=== PATIENT | female | born 2000 | race African-American/Black ===

== ENCOUNTER 2022-11-05 12:11 | Inpatient (IN) ==
[2022-11-05] MEDS ORDERED: Lactated Ringers 1000 ml BAG 1,000 ML IV ONE (12:28)
[2022-11-05] MEDS ORDERED: HYDROmorphone 1 MG/1 ML SYRINGE IV ONE ×4 (12:28→19:37)
[2022-11-05 13:07] LABS: ABS Basophils 0.1 10^3/ul (0-0.2); ABS Eosinophils 0.3 10^3/ul (0-0.6); ABS Lymphocytes 1.6 10^3/ul (1.0-4.8); ABS Monocytes 0.4 10^3/ul (0-0.8); ABS Neutrophils 6.6 10^3/ul (1.5-7.7); ABS Nucleated RBC 0.2 10^3/ul; Corrected Retic Count 4.4 % (0.5-1.5); Eosinophil % 2.9 %; Hematocrit 23 % (35-47); Hematocrit for Retic CNT 23 % (35-47); Immature Retic Fraction 0.69; Lymphocyte % 18.1 %; Mean Corpuscular HGB Conc 35 g/dL (31-36); Mean Corpuscular Hemoglobin 31 pg (27-31); Mean Corpuscular Volume 89 fL (80-97); Mean Platelet Volume 8.6 fL (7.4-10.4); Nucleated Red Blood Cells % 1.8; Platelet Count 320 10^3/uL (150-450); RBC Retic Count 2.58 10^6/uL (3.70-4.87); Red Blood Count 2.58 10^6 /uL (3.70-4.87); Red Cell Distribution Width 22 % (10-15)
[2022-11-05 13:12] LABS: INR 1.26 (0.88-1.18)
[2022-11-05 13:41] LABS: Albumin 4.4 g/dL (3.2-5.2); Albumin/Globulin Ratio 1.6 (1-3); Calcium 9.6 mg/dL (8.6-10.3); Creatinine, Serum 0.66 mg/dL (0.51-0.95); Direct Bilirubin 0.5 mg/dL (0.03-0.18); Globulin 2.8 g/dL (2-4); Indirect Bilirubin 5.9 mg/dL (0.3-1.0); Potassium 4.6 mmol/L (3.5-5.0); Total Bilirubin 6.4 mg/dL (0.2-1.0); Total Protein 7.2 g/dL (6.4-8.9); eGFR CKD-EPI 127.1 (>60)
[2022-11-05] MEDS ORDERED: HYDROmorphone 1 MG/1 ML SYRINGE IV SLOW PU ONE (14:02)
[2022-11-05] MEDS ORDERED: Enoxaparin 40 MG/0.4 ML SYR SUBCUT SCH (16:00)
[2022-11-05] MEDS ORDERED: HYDROmorphone 0.5 MG/0.5 ML SYRINGE IV PRN (16:10)
[2022-11-05] MEDS ORDERED: Acetaminophen IV 1 GM/100ML 1,000 MG/100 ML BAG IV PRN (16:11)
[2022-11-05] MEDS ORDERED: NS 0.9% 1000 ml BAG 1,000 ML IV SCH (16:30)
[2022-11-05] MEDS: oxyCODONE SR 10 mg TAB PO SCH ×2 (16:55→21:39)
[2022-11-05] MEDS ORDERED: oxyCODONE SR 10 mg TAB PO SCH (17:00)
[2022-11-05] MEDS ORDERED: Magnesium Hydroxide LIQ 30 ML UDC PO PRN (17:15)
[2022-11-05] MEDS: Enoxaparin 40 MG/0.4 ML SYR SUBCUT SCH (17:36)
[2022-11-05] MEDS ORDERED: HYDROmorphone 0.5 MG/0.5 ML SYRINGE IV ONE (17:45)
[2022-11-05] MEDS ORDERED: HYDROmorphone 1 MG/1 ML SYRINGE IV PRN (18:01)
[2022-11-05] MEDS ORDERED: HYDROmorphone 1 MG/1 ML SYRINGE IV SCH (20:00)
[2022-11-05] MEDS: HYDROmorphone 1 MG/1 ML SYRINGE IV SCH ×2 (21:36→23:51)
[2022-11-05] MEDS: NS 0.45% 1000 ml BAG 1,000 ML IV SCH (21:44)
[2022-11-06 00:39] LABS: HIV 4th Generation Nonreactive (Nonreactive)
[2022-11-06] MEDS: HYDROmorphone 1 MG/1 ML SYRINGE IV SCH ×4 (01:59→08:25)
[2022-11-06 05:40] LABS: Hematocrit 21 % (35-47); Hematocrit for Retic CNT 21 % (35-47); Mean Corpuscular HGB Conc 34 g/dL (31-36); Mean Corpuscular Hemoglobin 30 pg (27-31); Mean Corpuscular Volume 89 fL (80-97); Mean Platelet Volume 8.6 fL (7.4-10.4); Platelet Count 258 10^3/uL (150-450); RBC Retic Count 2.31 10^6/uL (3.70-4.87); Red Blood Count 2.31 10^6 /uL (3.70-4.87); Red Cell Distribution Width 22 % (10-15); White Blood Count 18.7 10^3/uL (3.5-10.8)
[2022-11-06] MEDS: NS 0.45% 1000 ml BAG 1,000 ML IV SCH (05:51)
[2022-11-06 06:11] LABS: Albumin 4.1 g/dL (3.2-5.2); Albumin/Globulin Ratio 1.5 (1-3); Calcium 8.7 mg/dL (8.6-10.3); Creatinine, Serum 0.58 mg/dL (0.51-0.95); Globulin 2.7 g/dL (2-4); Potassium 4.6 mmol/L (3.5-5.0); Total Bilirubin 5.9 mg/dL (0.2-1.0); Total Protein 6.8 g/dL (6.4-8.9); eGFR CKD-EPI 131.1 (>60)
[2022-11-06 07:02] LABS: Anisocytosis 2+; Polychromasia 2+
[2022-11-06 07:03] LABS: Sickle Cells 2+
[2022-11-06 07:04] LABS: Target Cells 2+
[2022-11-06 07:10] LABS: Microcytosis 1+
[2022-11-06 07:20] LABS: ABS Lymphocytes 2.1 10^3/ul (1.0-4.8); ABS Monocytes 1.8 10^3/ul (0-0.8); ABS Neutrophils 14.8 10^3/ul (1.5-7.7); ABS Nucleated RBC 0.5 10^3/ul; Corrected Retic Count 4.8 % (0.5-1.5); Eosinophil % 0.1 %; Immature Retic Fraction 0.69; Nucleated Red Blood Cells % 2.9
[2022-11-06] MEDS ORDERED: NS 0.9% 1000 ml BAG 1,000 ML IV SCH (07:30)
[2022-11-06] MEDS ORDERED: oxyCODONE SR 10 mg TAB PO SCH (08:00)
[2022-11-06] MEDS ORDERED: Naloxone 0.4 mg VIAL 0.4 mg/ml 1 ml VIAL IV PUSH PRN (08:25)
[2022-11-06] MEDS ORDERED: HYDROmorphone PCA 20 MG/20 ML PCA.SYRING PCA SCH (09:00)
[2022-11-06] MEDS: Enoxaparin 40 MG/0.4 ML SYR SUBCUT SCH (15:54)
[2022-11-06 16:52] LABS: Hematocrit 21 % (35-47); Hemoglobin 7.3 g/dL (12.0-16.0); Mean Corpuscular HGB Conc 34 g/dL (31-36); Mean Corpuscular Hemoglobin 30 pg (27-31); Mean Corpuscular Volume 88 fL (80-97); Mean Platelet Volume 8.5 fL (7.4-10.4); Platelet Count 262 10^3/uL (150-450); Red Blood Count 2.45 10^6 /uL (3.70-4.87); Red Cell Distribution Width 24 % (10-15); White Blood Count 14.8 10^3/uL (3.5-10.8)
[2022-11-06 18:01] LABS: Polychromasia 1+; Sickle Cells 3+; Target Cells 2+
[2022-11-06 18:02] LABS: Anisocytosis 2+
[2022-11-06 18:05] LABS: ABS Eosinophils 0.1 10^3/ul (0-0.6); ABS Lymphocytes 1.8 10^3/ul (1.0-4.8); ABS Monocytes 1.1 10^3/ul (0-0.8); ABS Neutrophils 11.8 10^3/ul (1.5-7.7); ABS Nucleated RBC 0.7 10^3/ul; Eosinophil % 0.4 %; Lymphocyte % 11.9 %; Nucleated Red Blood Cells % 4.6
[2022-11-06] MEDS ORDERED: Morphine 2 MG/ML SYRINGE IV PRN (18:54)
[2022-11-06 19:49] LABS: Urine Appearance Clear; Urine Bilirubin Negative (Negative); Urine Blood Negative (Negative); Urine Color Yellow; Urine Glucose Negative (Negative); Urine Ketones Negative (Negative); Urine Nitrite Negative (Negative); Urine Protein Negative (Negative); Urine Urobilinogen Negative (Negative)
[2022-11-06 19:53] LABS: Urine Bacteria Absent (Absent); Urine Red Blood Cell 1+(3-5/hpf) (Absent); Urine Squamous Epithelial Cell Present (Absent); Urine White Blood Cell Trace(0-5/hpf) (Absent); Urine Yeast Present (Absent)
[2022-11-06] MEDS: Senna TAB 8.6 mg TAB PO PRN (20:44)
[2022-11-06] MEDS: oxyCODONE SR 10 mg TAB PO SCH (20:44)
[2022-11-07] MEDS: HYDROmorphone 1 MG/1 ML SYRINGE IV SLOW PU PRN ×12 (00:24→22:24)
[2022-11-07 05:51] LABS: Hematocrit 21 % (35-47); Hematocrit for Retic CNT 21 % (35-47); Hemoglobin 7.3 g/dL (12.0-16.0); Mean Corpuscular HGB Conc 34 g/dL (31-36); Mean Corpuscular Hemoglobin 30 pg (27-31); Mean Corpuscular Volume 88 fL (80-97); Mean Platelet Volume 8.5 fL (7.4-10.4); Platelet Count 247 10^3/uL (150-450); RBC Retic Count 2.42 10^6/uL (3.70-4.87); Red Blood Count 2.42 10^6 /uL (3.70-4.87); Red Cell Distribution Width 22 % (10-15)
[2022-11-07 05:53] LABS: ABS Monocytes 1.2 10^3/ul (0-0.8); ABS Neutrophils 10.7 10^3/ul (1.5-7.7); ABS Nucleated RBC 0.6 10^3/ul; Corrected Retic Count 4.5 % (0.5-1.5); Eosinophil % 0.2 %; Immature Retic Fraction 0.71; Lymphocyte % 14.6 %; Nucleated Red Blood Cells % 4.1
[2022-11-07 06:14] LABS: Albumin 3.9 g/dL (3.2-5.2); Albumin/Globulin Ratio 1.4 (1-3); Calcium 8.6 mg/dL (8.6-10.3); Creatinine, Serum 0.53 mg/dL (0.51-0.95); Globulin 2.7 g/dL (2-4); Potassium 4.2 mmol/L (3.5-5.0); Total Bilirubin 5.2 mg/dL (0.2-1.0); Total Protein 6.6 g/dL (6.4-8.9)
[2022-11-07] MEDS ORDERED: NS 0.9% 1000 ml BAG 1,000 ML IV SCH (07:45)
[2022-11-07] MEDS ORDERED: Polyethylene Glycol 3350 17 GM PACKET PO PRN (08:05)
[2022-11-07] MEDS: oxyCODONE SR 10 mg TAB PO SCH ×2 (08:38→20:20)
[2022-11-07] MEDS: Enoxaparin 40 MG/0.4 ML SYR SUBCUT SCH (15:45)
[2022-11-07] MEDS: NS 0.9% 1000 ml BAG 1,000 ML IV SCH (18:35)
[2022-11-08] MEDS: HYDROmorphone 1 MG/1 ML SYRINGE IV SLOW PU PRN ×12 (01:08→23:16)
[2022-11-08] MEDS: NS 0.9% 1000 ml BAG 1,000 ML IV SCH (02:35)
[2022-11-08 07:19] LABS: Hematocrit 17 % (35-47); Hemoglobin 6.3 g/dL (12.0-16.0); Mean Corpuscular HGB Conc 37 g/dL (31-36); Mean Corpuscular Hemoglobin 32 pg (27-31); Mean Corpuscular Volume 86 fL (80-97); Mean Platelet Volume 8.4 fL (7.4-10.4); Platelet Count 233 10^3/uL (150-450); Red Blood Count 1.98 10^6 /uL (3.70-4.87); Red Cell Distribution Width 25 % (10-15); White Blood Count 11.9 10^3/uL (3.5-10.8)
[2022-11-08 07:36] LABS: Calcium 8.2 mg/dL (8.6-10.3); Creatinine, Serum 0.58 mg/dL (0.51-0.95); Potassium 4.5 mmol/L (3.5-5.0); eGFR CKD-EPI 131.1 (>60)
[2022-11-08] MEDS: oxyCODONE SR 10 mg TAB PO SCH ×2 (07:52→20:30)
[2022-11-08 07:59] LABS: Anisocytosis 3+; Target Cells 1+
[2022-11-08 08:00] LABS: Polychromasia 2+
[2022-11-08 08:02] LABS: ABS Eosinophils 0.1 10^3/ul (0-0.6); ABS Lymphocytes 2.5 10^3/ul (1.0-4.8); ABS Neutrophils 8.2 10^3/ul (1.5-7.7); ABS Nucleated RBC 0.4 10^3/ul; Eosinophil % 0.6 %; Lymphocyte % 21.1 %; Nucleated Red Blood Cells % 3.3; Sickle Cells 3+
[2022-11-08 10:27] LABS: Hematocrit for Retic CNT 17 % (35-47); RBC Retic Count 1.98 10^6/uL (3.70-4.87)
[2022-11-08 10:37] LABS: Corrected Retic Count 4.1 % (0.5-1.5); Immature Retic Fraction 0.79
[2022-11-08 10:38] LABS: Total Bilirubin 8.7 mg/dL (0.2-1.0)
[2022-11-08] MEDS: Morphine ORAL.SOLN 10 mg 2 mg/ml UDC 5 ml (10 mg) PO PRN (13:13)
[2022-11-08 14:08] LABS: Hematocrit 23 % (35-47); Hemoglobin 7.9 g/dL (12.0-16.0)
[2022-11-08] MEDS: Enoxaparin 40 MG/0.4 ML SYR SUBCUT SCH (16:37)
[2022-11-09] MEDS: Morphine ORAL.SOLN 10 mg 2 mg/ml UDC 5 ml (10 mg) PO PRN ×2 (00:23→12:50)
[2022-11-09 06:24] LABS: Hematocrit 21 % (35-47); Hemoglobin 7.3 g/dL (12.0-16.0); Mean Corpuscular HGB Conc 35 g/dL (31-36); Mean Corpuscular Hemoglobin 30 pg (27-31); Mean Corpuscular Volume 86 fL (80-97); Mean Platelet Volume 8.6 fL (7.4-10.4); Platelet Count 250 10^3/uL (150-450); Red Blood Count 2.42 10^6 /uL (3.70-4.87); Red Cell Distribution Width 23 % (10-15); White Blood Count 8.7 10^3/uL (3.5-10.8)
[2022-11-09 06:37] LABS: Albumin 3.6 g/dL (3.2-5.2); Albumin/Globulin Ratio 1.5 (1-3); Calcium 8.4 mg/dL (8.6-10.3); Creatinine, Serum 0.58 mg/dL (0.51-0.95); Globulin 2.4 g/dL (2-4); Potassium 4.2 mmol/L (3.5-5.0); Total Bilirubin 8.4 mg/dL (0.2-1.0); eGFR CKD-EPI 131.1 (>60)
[2022-11-09 06:44] LABS: ABS Eosinophils 0.2 10^3/ul (0-0.6); ABS Lymphocytes 1.6 10^3/ul (1.0-4.8); ABS Monocytes 0.8 10^3/ul (0-0.8); ABS Neutrophils 6.1 10^3/ul (1.5-7.7); ABS Nucleated RBC 0.6 10^3/ul; Eosinophil % 2.2 %; Lymphocyte % 18.1 %; Nucleated Red Blood Cells % 6.9
[2022-11-09] MEDS ORDERED: NS 0.9% 1000 ml BAG 1,000 ML IV SCH (08:15)
[2022-11-09] MEDS: oxyCODONE SR 10 mg TAB PO SCH (08:26)
[2022-11-09] MEDS: Senna TAB 8.6 mg TAB PO PRN (08:27)
[2022-11-09 11:59] VITALS: BP 101/66
== END 2022-11-09 13:05 | disposition home or self-care (01) | DRG 662 ==
LOC: EDHOLD 12:11 → ED 12:11 → MEDTELE 21:07 → SUATTDRO 11-06 10:20
PROVIDERS: ADMIT Hospitalist; ATTEND Family Medicine